=== PATIENT | male | born 1995 | race Caucasian/White ===

== ENCOUNTER 2024-11-25 08:52 | Emergency (ER) | payer MEDICAID, OTHER ==
[~2024-11-25] VITALS: Ht 167.6 cm; Wt 89.0 kg
[2024-11-25 08:52] VITALS: O2SAT 100
[2024-11-25 08:59] VITALS: TEMP 98.7; O2SAT 100
[2024-11-25] MEDS ORDERED: IBUP-2029 MT (10:11)
[2024-11-25] MEDS ORDERED: HYDR-4001 MT (10:11)
[2024-11-25 10:50] VITALS: BP 123/81; PULSE 78; RESP 16
[2024-11-25] MEDS: KETOROLAC 30MG/ML VIAL IM ONE (10:50)
== END 2024-11-25 11:26 | disposition home or self-care (01) ==
LOC: ER 08:52
DX: S22.32XA Fracture of one rib, left side, initial encounter for closed fracture (principal); W18.30XA Fall on same level, unspecified, initial encounter; Y93.89 Activity, other specified; Y92.89 Other specified places as the place of occurrence of the external cause; Y99.8 Other external cause status
CPT/HCPCS: 71101; 96372; 99283; J1885; Z7610

== ENCOUNTER 2025-08-18 10:31 | Emergency (ER) | payer OTHER ==
[~2025-08-18] VITALS: Ht 175.3 cm; Wt 82.0 kg
[~2025-08-18 10:31] MED LIST: HYDR-4001 MT; IBUP-1455 MT
[2025-08-18 10:36] VITALS: O2SAT 99
[2025-08-18 10:54] VITALS: TEMP 37.2; O2SAT 100
[2025-08-18 14:27] VITALS: BP 113/72; PULSE 57; RESP 18
[2025-08-18] MEDS: IBUPROFEN 600MG TABLET PO ONE (14:27)
[2025-08-18] MEDS ORDERED: IBUP-1455 MT (14:46)
== END 2025-08-18 15:20 | disposition home or self-care (01) ==
LOC: ER 10:31
DX: M25.531 Pain in right wrist (principal); Z79.899 Other long term (current) drug therapy
CPT/HCPCS: 99283; 73110; A6449